=== PATIENT | female | born 1985 | race Caucasian/White ===

== ENCOUNTER 2019-12-24 01:06 | Day surgery (SDC) | payer BC, SELFPAY ==
[2019-12-23 09:54] VITALS: BMI 29.3
--- NOTE | 2019-12-23 10:55 | PM.IMHP ---
H&P: HPI History of Present Illness Chief complaint: Irregular Bleeding Narrative: Guilherme Cedillo is a 34 year old female who is admitted for hysteroscopy dilatation curettage secondary to continued excessive heavy bleeding. She was seen a week ago after bleeding for approximately a week and half had been on a continuous take pill she has gone through temp entered tampon every 2 hours she continued to have clotting despite being treated with not transmit gas in and of these clots been anywhere from a golf ball to a smaller size. She continues to bleed she is admitted for hysteroscopy dilatation and curettage. Risks and benefits reviewed Review of Systems Review of Systems: All systems reviewed & are unremarkable except as noted in HPI and below PMFSH Family History Family History Sibling Family history of diabetes mellitus in first degree relative Other Family history of cardiovascular disease Hypertension Social History Social History Smoking status: Never smoker Alcohol intake: current Meds Home Medications and Allergies Home Medications Medication Instructions Recorded Confirmed Type albuterol sulfate 2 puff INHALATION Q6H PRN 12/23/19 12/23/19 History beclomethasone dipropionate [Qvar 2 inh INHALATION DAILY 12/23/19 12/23/19 History RediHaler] bupropion HCl 300 mg PO DAILY 12/23/19 12/23/19 History Allergies Allergy/AdvReac Type Severity Reaction Status Date / Time No Known Allergies Allergy Unverified 12/23/19 09:57 Exam Const: General: no acute distress Eyes: General: appearance normal, both eyes and all related structures Neck: Neck: supple and no JVD Thyroid: thyroid normal Resp: Effort & Inspection: normal respiratory effort Auscultation: clear to auscultation bilaterally Cardio: Rate: regular rate Rhythm: regular rhythm GI: Inspection: non-distended GI Palp: Yes Soft to palpation, No Tenderness to palpation present (GI) and No Guarding due to palpation present (GI) Auscultation: normal bowel sounds : General: Yes bladder normal to palpation External Female Exam: normal external appearance Speculum Exam - Vagina: normal vaginal discharge and No vaginal bleeding Speculum Exam - Cervix: nontender Bimanual exam- vagina & uterus: bladder normal to palpation and No Cervical tenderness present OB/external & speculum: No vaginal bleeding Skin: General skin exam: no rashes or lesions noted Extrem: General: normal to inspection and no edema Psych: Mental Status: mental status grossly normal Affect: normal affect Assessment and Plan Additional Plan a in impression: Excessive heavy bleeding refractory medical therapy Plan: Hysteroscopy, dilatation and curettage
--- NOTE | 2019-12-24 06:43 | WPDHPUPDATE1 ---
History and Physical Update Update Date/Time: 12/24/19 06:43 History and Physical has been reviewed, including an updated exam of the patient. There are NO changes in the patient's condition. Risks, benefits, and alternatives have been discussed and questions answered. Patient agrees to proceed with procedure.
--- NOTE | 2019-12-24 09:31 | WPDANESEPPF ---
Anes - Initial Pre Proc Eval Procedure: Operation Date: 12/24/19 11:30 Proposed Procedures p Hysteroscopy, Dilation and Curettage - Favio Zaidi MD Date/Time: 12/24/19 09:31 Surgeon: Favio Zaidi MD Pre Op Diagnosis: Irregular Bleeding Patient Data Age: 34 Gender: F Height: 5 ft 6 in Weight: 83.5 kg Allergies Allergy/AdvReac Type Severity Reaction Status Date / Time No Known Allergies Allergy Unverified 12/24/19 09:27 Home Medications Medication Instructions Recorded Confirmed Type albuterol sulfate 2 puff INHALATION Q6H PRN 12/23/19 12/24/19 History beclomethasone dipropionate [Qvar 2 inh INHALATION DAILY 12/23/19 12/24/19 History RediHaler] bupropion HCl 300 mg PO DAILY 12/23/19 12/24/19 History hydrocodone-acetaminophen [[place]] 1 tablet PO Q4H PRN #20 tablet 12/24/19 Rx Patient hx anesthesia problems: none Family hx anesthesia problems: none PMFSH Past Medical History Medical History (Updated 12/24/19 @ 09:32 by Favio Edmonds MD) Anxiety Asthma Overweight Surgical History Surgical History (Updated 12/24/19 @ 09:32 by Favio Edmonds MD) H/O lithotripsy History of thoracic spinal fusion Family History Family History Sibling Family history of diabetes mellitus in first degree relative Other Family history of cardiovascular disease Hypertension Social History Social History Smoking status: Never smoker Alcohol intake: current Anes - Eval Final PreProcedure Day of Procedure 12/24/19 09:31 Patient weight: overweight Heart: regular rate and rhythm Lungs: clear to auscultation Airway: Mallampati scale class II Neurological: alert and oriented Last oral intake: >/= 8 hours ASA classification: II Anesthetic plan: proceed Anesthesia type and monitoring: general GIVS and standard monitoring Informed Consent: The patient's anesthetic plan and its attendant risks and benefits were discussed with the patient/family/POA. Questions were solicited and answers provided to the satisfaction of the patient/family/POA.
[2019-12-24 09:32] VITALS: BP 126/76; PULSE 79; RESP 18; TEMP 36.6; O2SAT 100
[2019-12-24] MEDS: LACTATED RINGERS 1,000 ML 30 ML IV CONT (09:36)
[2019-12-24] MEDS: KETOROLAC 30 MG/ML VIAL (*BKC) IV PUSH (11:13)
--- NOTE | 2019-12-24 11:18 | PM.PROC ---
Procedure Note - Detailed Date of procedure: 12/24/19 Pre-op diagnosis: Irregular Bleeding Surgeon: Favio Zaidi MD Postop diagnosis: Irregular bleeding Procedure: Hysteroscopy , dilatation curettage Anesthesia: G IV S, local Complications: None Findings: Thick irregular endometrial tissue Description procedure patient was prepped and draped in the normal sterile fashion placed in dorsal lithotomy position. Under excellent IV sedation a weighted speculum was placed in the posterior fornix of vagina. The anterior lip of the cervix grasped with single-tooth tenaculum. 2.5cc of 1% xylocaine anesthesia placed at 2 for 8 and 10:00 a.m. respectively of the cervix. Uterus sounded 8cm. Serial dilatation with fragmented out performed followed by passage of the 5mm visualizing hysteroscope using normal saline as visualizing medium. Thick irregular endometrial tissue was seen. Each fallopian tube os could be seen. The uterus was then scraped over the entire 360?. A good grating sound was heard in the procedure was finished. All sponge, needle, instrument counts were correct. There were no immediate complications
[2019-12-24 11:25] VITALS: BP 131/72; PULSE 70; RESP 16
[2019-12-24 12:06] VITALS: BP 132/68; PULSE 68
--- NOTE | 2019-12-24 12:21 | SUR.PHASEII ---
[address] rainey about pain script, he says he printed one will check pre-op.
--- NOTE | 2019-12-24 12:23 | SUR.PHASEII ---
1223 pain script found in pre-op
== END 2019-12-24 12:38 | disposition home or self-care (01) ==
PROVIDERS: PCP Physician Assistant; Visit Provider Obstetrics & Gynecology
PROC: 0U5B8ZZ Destruction of Endometrium, Via Natural or Artificial Opening Endoscopic (ICD-10-PCS; CPT 58563; principal; 2019-12-24 11:30)
DX: N93.9 Abnormal uterine and vaginal bleeding, unspecified (principal); N85.8 Other specified noninflammatory disorders of uterus; J45.909 Unspecified asthma, uncomplicated; F41.9 Anxiety disorder, unspecified; Z98.1 Arthrodesis status
CPT/HCPCS: 58558; 88305; A9270; J0131; J1885; J2250; J2405; J2704; J3010; J7030; J7120

== ENCOUNTER 2020-07-21 19:58 | Emergency (ER) | payer BC, SELFPAY ==
[2020-07-21 20:01] VITALS: BP 157/101; PULSE 97; RESP 16; TEMP 36.4; O2SAT 100
[2020-07-21] MEDS: methylPREDNISolone SOD SUCC 125 MG VIAL IV PUSH (20:17)
[2020-07-21] MEDS: FAMOTIDINE 20 MG/2 ML VIAL IV PUSH (20:17)
[2020-07-21] MEDS: EPINEPHrine HCL INJ 1 MG/ML AMPUL 0.3 MG IM (20:19)
--- NOTE | 2020-07-21 20:21 | ED.ALLEREA ---
HPI - Allergic Reaction General Chief complaint: Allergic Reaction Stated complaint: allergic reaction, lip swelling, SOB Time Seen by Provider: 07/21/20 20:09 Source: patient Mode of arrival: ambulatory Limitations: no limitations History of Present Illness HPI narrative: This patient is a 35 year old female who presents for evaluation of an allergic reaction. Patient reports she was eating dinner around 1800 today. She was eating cod, macarroni and coleslaw. Shortly after eating she developed tingling to his lips . She went home to take benadryl 50 mg. Her lip tingling improved but she continues to have itching throat, cough and feeling that tongue is swollen. She denies any allergies . She reports having hives before but she never knee the cause. Related Data Home Medications Medication Instructions Recorded Confirmed bupropion HCl mg PO 07/21/20 drospirenone-ethinyl estradiol tablet 07/21/20 Allergies Allergy/AdvReac Type Severity Reaction Status Date / Time No Known Allergies Allergy Unverified 12/24/19 09:27 Review of Systems Review of Systems: All systems reviewed & are unremarkable except as noted in HPI and below Constitutional: Constitutional: Denies chills and Denies fever(s) Cardiovascular: Cardiovascular: Denies chest pain Respiratory: Respiratory: Reports cough and Reports dyspnea Integumentary/Breasts: Skin/Breast: Reports pruritus PMFSH Past Medical History Medical History (Updated 07/22/20 @ 00:00 by Kendra Rincon) Anxiety Asthma Overweight Surgical History Surgical History (Updated 12/24/19 @ 09:32 by Favio Edmonds MD) H/O lithotripsy History of thoracic spinal fusion Social History Social History Smoking status: Never smoker Alcohol intake: current Exam Narrative: Exam Narrative: GENERAL: Well-appearing, well-nourished, and in no acute distress. HEAD: Normocephalic, atraumatic EYES: PERRLA and EOMI, conjunctiva clear without discharge THROAT:Mucous membranes moist, Oropharynx normal without erythema, exudate, peritonsillar swelling or fluctuance NECK: Supple, without lymphadenopathy or mass RESPIRATORY: No respiratory distress, Airway patent, Respirations non-labored, Clear to auscultation without rales, rhonchi or wheeze HEART: Regular rate and rhythm. No murmur heard. Normal peripheral pulses. ABDOMEN: Soft, nontender, nondistended, normal active bowel sounds. No masses. No rebound or guarding, No organomegaly. EXTREMITIES: No edema, normal strength with full range of motion. SKIN: Warm, dry, normal color without rash NEURO: Alert and oriented x3. CN 2-12 grossly intact. No focal deficits. PSYCH: Normal mood and affect. Course Reevaluation(s) Reevaluation #1: PAtient only has mild headache now. She reports she feels better. She is able to eat and drink without difficulty now. She is no longer coughing. Date: 07/21/20 Time: 22:03 Vital Signs Vital signs: Vital Signs Temperature 97.6 F 07/21/20 20:01 Pulse Rate 97 07/21/20 20:01 Respiratory Rate 16 07/21/20 20:01 Blood Pressure 157/101 H 07/21/20 20:01 Pulse Oximetry 100 07/21/20 20:01 Temperature 97.6 F 07/21/20 20:01 Pulse Rate 83 07/21/20 22:22 Respiratory Rate 16 07/21/20 22:22 Blood Pressure 125/87 07/21/20 22:22 Pulse Oximetry 100 07/21/20 22:22 Discharge Plan Discharge Clinical Impression: Allergic reaction Patient Disposition: Home, Self-Care Condition: Stable Instructions: Antibiotic Form, Anaphylaxis (ED), Allergies (ED) Additional Instructions: Today you were evaluated for an allergic reaction of an unknown cause . Keep a diary of your eating and exposures. IF your shortness of breath, tongue swelling or symptoms worsen return to ER. Follow up with your primary care physician. Prescriptions: New epinephrine [EpiPen] 0.3 mg/0.3 mL auto-injector 0.3 m
[2020-07-21 20:36] VITALS: BP 131/90; PULSE 90; RESP 16; O2SAT 100
[2020-07-21 22:22] VITALS: BP 125/87; PULSE 83; RESP 16; O2SAT 100
== END 2020-07-21 22:23 | disposition home or self-care (01) ==
PROVIDERS: Emergency Provider General Practice; PCP Physician Assistant
DX: T78.40XA Allergy, unspecified, initial encounter (principal); F41.9 Anxiety disorder, unspecified; J45.909 Unspecified asthma, uncomplicated; E66.3 Overweight; Z68.32 Body mass index [BMI] 32.0-32.9, adult
CPT/HCPCS: 96372; 96374; 96375; 99284; J0171; J2930

== ENCOUNTER 2022-01-08 20:15 | Emergency (ER) | payer BC, SELFPAY ==
--- NOTE | ~2022-01-08 | CT_ITS ---
EXAMINATION: CT abdomen pelvis w con INDICATION: Epigastric abdominal pain TECHNIQUE: Computed tomographic images of the abdomen and pelvis were obtained after the administrati on of 100 cc of Omnipaque 350 intravenous contrast. The dose-length product (DLP) was 640.36 mGy-cm. Automated exposure control and iterative reconstruction technique were employed. COMPARISON: 08/08/2018 FINDINGS: A stable 3 mm subpleural nodule of the left lower lobe is consistent with old granulomatous disease. There is mild enlargement of the common bile duct which measures up to 7 mm. There is mild intrahepatic biliary dilatation. The spleen, pancreas, gallbladder, and adrenal glands are normal. No nobstructing stones of the right kidney measure up to 9 mm. There are punctate nonobstructing stones of the left kidney. No pathologically enlarged abdominal or pelvic lymph nodes are identified. There is no free intraperitoneal gas or evidence of bowel obstruction. There is a greater than normal numbe r of fluid-filled, nondistended small bowel loops. The appendix is normal. IMPRESSION: 1. Mild intrahepatic and extrahepatic biliary dilatation of unclear significance. Consider right uppe r quadrant ultrasound. 2. Greater than normal number of fluid-filled, nondistended small bowel loops which could reflect ent eritis. Reviewed, dictated and finalized at location F. RNAL AUDIT DIRECTOR IMPRESSION: 1. Mild intrahepatic and extrahepatic biliary dilatation of unclear significanc e. Consider right upper quadrant ultrasound. 2. Greater than normal number of fluid-filled, nondistended small bowel loops w hich could reflect enteritis.
[2022-01-08 20:15] VITALS: BP 131/78; PULSE 84; RESP 15; TEMP 36.1; O2SAT 100
[2022-01-08 20:20] VITALS: BP 131/78; PULSE 85; RESP 24; O2SAT 100
--- NOTE | 2022-01-08 20:30 | ECG_ITS ---
Measurements Intervals [place] Rate: 77 P: 51 [place]: 155 QRS: 81 QRSD: 91 T: 77 QT: 425 QTc: 482 Interpretive Statements SINUS RHYTHM MINIMAL Q WAVES- INFERIOR LEADS BORDERLINE ST ABNORMALITY- ANTEROLAT/INF LEADS BORDERLINE ECG Electronically Signed On 01-09-2022 6:24:31 [employer] by Arash Foley D.O.
--- NOTE | 2022-01-08 20:31 | ED.ABDPAIN ---
HPI - Abdominal Pain General Chief Complaint: Abdominal Pain <Zita Dubon MD - Last Filed: 01/08/22 20:42> Stated Complaint: abd pain <Zita Dubon MD - Last Filed: 01/08/22 20:42> Time Seen by Provider: 01/08/22 20:19 <Zita Dubon MD - Last Filed: 01/08/22 20:42> Source: patient <Zita Dubon MD - Last Filed: 01/08/22 20:42> Mode of arrival: EMS <Zita Dubon MD - Last Filed: 01/08/22 20:42> Limitations: no limitations <Zita Dubon MD - Last Filed: 01/08/22 20:42> History of Present Illness HPI narrative: This is a 36 year old female who presents for evaluation of sudden onset epigastric abdominal pain. She states 1 hour ago she was driving and she developed sudden onset epigastric pain. She describes this pain has squeezing. She reports her pain has been so severe she is nauseaous and felt like she was going to pass out. She pulled over to side of road and called and EMS. She reports having GI bug this past weekend with vomiting and diarrhea but it had resolved. She ate Tajik food 1 hour prior to her pain but she states this is nothing out of the ordinary. She denies any similar pain in the past. She denies melena or diarrhea today. Shed denies fever or chills. <Zita Dubon MD - Last Filed: 01/08/22 20:42> Related Data Home Medications: Home Medications Medication Instructions Recorded Confirmed bupropion HCl mg PO 07/21/20 drospirenone-ethinyl estradiol tablet 07/21/20 <Zita Dubon MD - Last Filed: 01/08/22 20:42> Allergies/Adverse Reactions: Allergies Allergy/AdvReac Type Severity Reaction Status Date / Time No Known Allergies Allergy Verified 01/08/22 20:21 <Zita Dubon MD - Last Filed: 01/08/22 20:42> Review of Systems Review of Systems: All systems reviewed & are unremarkable except as noted in HPI and below <Zita Dubon MD - Last Filed: 01/08/22 20:42> [facility] Past Medical History Medical History: Medical History Anxiety Asthma Kidney stone Overweight <Zita Dubon MD - Last Filed: 01/08/22 20:42> Surgical History Surgical History: Surgical History (Updated 01/08/22 @ 20:32 by Zita Dubon MD) H/O lithotripsy History of cholecystectomy History of thoracic spinal fusion <Zita Dubon MD - Last Filed: 01/08/22 20:42> Family History Family History: Family History Sibling Family history of diabetes mellitus in first degree relative Other Family history of cardiovascular disease Hypertension <Zita Dubon MD - Last Filed: 01/08/22 20:42> Social History Social History: Social History Smoking status: Never smoker Alcohol intake: current <Zita Dubon MD - Last Filed: 01/08/22 20:42> Exam Const: General: alert <Zita Dubon MD - Last Filed: 01/08/22 20:42> Orientation/consciousness: patient oriented x3 <Zita Dubon MD - Last Filed: 01/08/22 20:42> Other: mild distress due to pain <Zita Dubon MD - Last Filed: 01/08/22 20:42> Eyes: EOM: EOMs intact bilaterally <Zita Dubon MD - Last Filed: 01/08/22 20:42> Chest: Chest palpation & inspection: normal inspection of the chest <Zita Dubon MD - Last Filed: 01/08/22 20:42> Resp: Effort & Inspection: normal respiratory effort and no retractions <Zita Dubon MD - Last Filed: 01/08/22 20:42> Auscultation: clear to auscultation bilaterally <Zita Dubon MD - Last Filed: 01/08/22 20:42> Cardio: Rate: regular rate <Zita Dubon MD - Last Filed: 01/08/22 20:42> Rhythm: regular rhythm <Zita Dubon MD - Last Filed: 01/08/22 20:42> Heart sounds: no murmurs <Zita Dubon MD - Last Filed: 01/08/22 20:42> GI: GI Palp: Yes Sof
[2022-01-08] MEDS: SODIUM CHLORIDE 0.9% IV 1,000 ML 999 ML IV CONT (20:43)
[2022-01-08] MEDS: PANTOPRAZOLE SODIUM IV 40 MG VIAL IV PUSH (20:43)
[2022-01-08] MEDS: DICYCLOMINE HCL INJ 20 MG/2 ML VIAL IM (20:43)
[2022-01-08] MEDS: ONDANSETRON INJ 4 MG/2 ML VIAL IV PUSH (20:43)
[2022-01-08 21:00] LABS: Basophils Percent Auto 0.4 % (0.2-1.2); Eosinophils Absolute Auto 0.1 K/mm3 (0-0.3); Eosinophils Percent Auto 0.6 % (0-4.4); Hematocrit 38.4 % (37.0-47.0); Immature Granulocyte Absolute 0.03 K/mm3 (0.00-0.031); Immature Granulocyte Percent A 0.3 % (0-0.5); Lymphocytes Absolute Auto 3.96 K/mm3 (0.9-3.2); Lymphocytes Percent Auto 40.1 % (18.3-44.2); Mean Corpuscular HGB Conc 33.9 g/dl (32-36); Mean Corpuscular Hemoglobin 29.2 pg (26-34); Mean Corpuscular Volume 86.3 fl (80-100); Mean Platelet Volume 9.7 fl (7.4-10.4); Monocytes Absolute Auto 0.6 K/mm3 (0.1-0.6); Monocytes Percent Auto 6.3 % (2.6-8.5); Neutrophils Absolute Auto 5.2 K/mm3 (1.3-6.7); Neutrophils Percent Auto 52.3 % (45.5-73.1); Platelet Count Result 245 k/mm3 (150-375); Red Blood Count 4.45 M/mm3 (4.2-5.4); Red Cell Distribution Width 12.2 % (11.5-14.5); White Blood Count 9.9 K/mm3 (4.5-10.0)
[2022-01-08 21:08] LABS: Alanine Aminotransferase 19 U/L (4-35); Albumin Level 4.3 g/dL (3.5-5.1); Alkaline Phosphatase 97 U/L (38-126); Anion Gap 6 mmol/L (8-16); Aspartate Amino Transferase 31 U/L (14-36); Bilirubin,Total 0.5 mg/dL (0.2-1.3); Blood Urea Nitrogen 11 mg/dL (7-17); Carbon Dioxide 29 mmol/L (22-30); Chloride 102 mmol/L (98-107); Estimated CRCL calculation 86 ml/min; Estimated Glomerular Filt Rate > 60; Glucose 99 mg/dL (65-110); Lipase 150 U/L (23-300); Potassium 3.4 mmol/L (3.4-5.0); Sodium 137 mmol/L (137-145)
[2022-01-08 21:08] LABS: Add Urine Microscopic? YES; Appearance Urine Clear (Clear); Bacteria Urine Trace /hpf; Bilirubin Urine Negative (Negative); Blood Urine 1+ (Negative); Calcium Oxalate Crystals Urine Present /hpf; Color Urine Yellow (Yellow); Glucose Urine UA Negative (Negative); Ketones Urine Negative (Negative); Leukocyte Esterase Ur Negative LEU/UL (Negative); Nitrate Urine Negative (Negative); Protein Urine Negative (Negative); Specific Grav Ur 1.016 (1.001-1.035); Squamous Epithelial Cell Urine Rare /hpf (Few); Urobilinogen Urine Negative mg/dL (<2.0)
[2022-01-08] MEDS: HYDROmorphone HCL INJ (*CRX) 1 MG/ML SYR 0.5 MG IV PUSH (21:36)
[2022-01-08] MEDS: BELLADONNA ALK/PHENOB ELIX 10 ML, MAG HYDROX/ALUMINUM HYD/SIMETH 30 ML, LIDOCAINE HCL 2... PO (22:32)
[2022-01-08 22:35] VITALS: BP 129/79; PULSE 87; RESP 20; O2SAT 100
[2022-01-08] MEDS: FAMOTIDINE 20 MG TABLET 40 MG PO (23:24)
[2022-01-08 23:38] VITALS: BP 134/87; PULSE 81; RESP 16; O2SAT 97
== END 2022-01-08 23:39 | disposition home or self-care (01) ==
PROVIDERS: General Practice; Emergency Provider Emergency Medicine; PCP Physician Assistant
DX: K29.00 Acute gastritis without bleeding (principal); J45.909 Unspecified asthma, uncomplicated; F41.9 Anxiety disorder, unspecified; Z87.442 Personal history of urinary calculi; E66.3 Overweight; Z68.25 Body mass index [BMI] 25.0-25.9, adult; Z98.1 Arthrodesis status; R94.31 Abnormal electrocardiogram [ECG] [EKG]; R93.2 Abnormal findings on diagnostic imaging of liver and biliary tract
CPT/HCPCS: 36415; 74177; 80053; 81001; 81025; 83690; 85025; 93005; 96361; 96372; 96374; 96375; 99284; A9270; C9113; J0500; J1170; J2405; J7030; Q9967

== ENCOUNTER 2022-01-10 09:00 | Outpatient (CLI) | payer BC, SELFPAY ==
--- NOTE | ~2022-01-10 | US_ITS ---
EXAMINATION: US right upper quadrant DATE: 01/10/2022 09:30 INDICATION: Disorder of bile duct. Right upper quadrant abdominal pain. TECHNIQUE: Multiple grayscale and Doppler ultrasound images of the abdomen were obtained. COMPARISON: CT abdomen and pelvis 01/08/2022 FINDINGS: The visualized portions of the head, body, and tail of the pancreas are normal. The liver i s normal without focal lesion. No liver surface nodularity. The gallbladder is absent. There is scotty l flow in the main portal vein. The common duct is normal and measures 4 mm. Abdominal aorta is scotty l in caliber. Inferior vena cava is normal. IMPRESSION: 1. Normal right upper quadrant ultrasound status post cholecystectomy. Reviewed, dictated and finalized at location A. ANALYST REPORT WRITER
== END 2022-01-10 09:01 ==
LOC: MICIMG 09:01
PROVIDERS: PCP Physician Assistant; Visit Provider Physician Assistant
DX: K83.9 Disease of biliary tract, unspecified (principal)
CPT/HCPCS: 76705

== ENCOUNTER 2022-03-18 12:09 | Outpatient (CLI) | payer BC, SELFPAY ==
--- NOTE | ~2022-03-18 | MMUS_ITS ---
EXAMINATION: MM diagnostic connie BI w stan, US breast BI complete HISTORY: Right lateral breast pain, swelling, rash. Diminished redness with steroid cream. TECHNIQUE: ML, MLO and CC 3-D tomosynthesis images of both breasts were performed and synthetic 2-D i mages were generated. CAD analysis was submitted and interpreted. High resolution bilateral complete breast ultrasound including all 4 quadrants and subareolar areas was performed. COMPARISON: None BREAST PARENCHYMAL COMPOSITION: The breasts are extremely dense, which lowers the sensitivity of mamm ography. FINDINGS: MAMMOGRAPHIC FINDINGS: No suspicious mass or architectural distortion, malignant calcification, skin thickening or retractio n is detected. ULTRASOUND: No suspicious mass or shadowing of either breast is detected. No cysts or other significant sonograph ic finding. IMPRESSION: 1. No mammographic evidence of malignancy 2. Routine mammographic screening beginning at age 40 is recommended; negative mammogram and ultrasou nd examinations do not preclude further evaluation of any clinically suspicious abnormality. BI-RADS Category 1: Negative Reviewed, dictated and finalized at location A. IMPRESSION: 1. No mammographic evidence of malignancy 2. Routine mammographic screening beginning at age 40 is recommended; negative mammogram and ultrasound examinations do not preclude further evaluation of any clinically suspicious abnormality. BI-RADS Category 1: Negative
== END 2022-03-18 12:10 | disposition home or self-care (01) ==
LOC: ANHIMG 12:11
PROVIDERS: PCP Physician Assistant; Visit Provider Obstetrics & Gynecology
DX: N64.4 Mastodynia (principal)
CPT/HCPCS: 76641; 77062; 77066; G0279

== ENCOUNTER 2022-08-16 10:34 | Day surgery (SDC) | payer BC, SELFPAY ==
[2022-08-16] VITALS (11 sets, daily range): BP systolic 119–141; BP diastolic 75–86; PULSE 54–80; RESP 12–20; TEMP 36.3–37.2; O2SAT 97–100
--- NOTE | 2022-08-16 10:37 | PC.NURSE ---
Report to the Outpatient Waiting Room, entrance under the green pavilion located off [facility], at time 1300 on date 08/16/22. OR Time: 1530. Time changes happen often and if your time is changed the preop area will call you the afternoon before. - You and your visitor will be asked to self-screen and do not enter if you have any COVID symptoms. - Only one visitor and NO children visitors are allowed at this time. - The patient visitor is requested to leave or wait in car when not with patient due to restrictions. - A mask is required within the hospital. Patients may have clear liquids (water, carbonated beverages, clear teas, apple juice) until 3 hours prior to surgery with a maximum of 20 ounces. - No food from midnight until time of surgery Take the following medications with a SIP of water the morning of surgery: N/A (TOOK AM MEDS) Medications to discontinue per physician: N/A Date to take last dose: N/A Please no make-up, nail burundian, hairspray, perfume, deodorant, or body powder the day of surgery. No jewelry (including any body piercings) or valuables the day of surgery, leave them at home. Please take a shower or bath the night before, or the morning of, surgery with an antibacterial soap. Wear comfortable, loose fitting clothing. - Jewelry must be removed prior to entering the operating room. Rings and piercings that are not removed may be cut off. - The hospital will not accept responsibility for valuables. - Please leave all valuables, including medications, at home the day of surgery. If you are going home after surgery, a licensed route sales delivery driver must drive you home. - NO public transportation without another adult. - We recommend that an adult stay with you for 24 hours following discharge. - We also recommend that you do not drive, make important decision, drink alcoholic beverages, or take any drugs that were not prescribed by your health care provider for at least 24 hours after your discharge time. Follow any additional instructions given to you from your surgeon. If you or anyone in your household have experienced Covid symptoms in the past week, please notify your surgeon or the nurse liaison at the phone number below for possible testing. Telephone instructions given to PT - BELEN LEIJA and asked if any additional questions and then verbalized understanding. Patient advised to call surgeon office or pre surgery nurse liaison [phone] if any additional questions.
--- NOTE | 2022-08-16 12:08 | PM.IMHP ---
H&P: HPI History of Present Illness Date/Time: 08/16/22 12:08 Chief Complaint: Bleeding/desires permanent sterilization Narrative: This is a 37-year-old multiparous female with heavy bleeding. She had been on the pill which did not stop her bleeding and then she went to oral TXA. She continues to bleed heavily. She desires permanent sterilization. Fortunately Dr. Lowe had discussed with her a tubal ligation and ablation before in the past and she is agreeable to that risks and benefits reviewed in full [facility] Past Medical History Medical History Anxiety Asthma Kidney stone Overweight Surgical History Surgical History H/O lithotripsy History of cholecystectomy History of thoracic spinal fusion Family History Family History Sibling Family history of diabetes mellitus in first degree relative Other Family history of cardiovascular disease Hypertension Social History Social History Smoking status: Never smoker Alcohol intake: current Drinks per week: 2 Substance use: never Substance use type: does not use Living arrangements: with family Spiritual care concerns: No Meds Home Medications and Allergies Home Medications Medication Instructions Recorded Confirmed Type bupropion HCl 300 mg 24 hr tablet, 300 mg PO DAILY 07/21/20 08/16/22 History extended release drospirenone 3 mg-ethinyl 1 tablet PO DAILY 07/21/20 08/16/22 History estradiol 0.03 mg tablet epinephrine 0.3 mg/0.3 mL 0.3 mg (0.3 mL) IM ONCE #1 ea 07/21/20 08/16/22 Rx injection, auto-injector (EpiPen) beclomethasone dipropionate 40 2 inh inhalation DAILY 08/16/22 08/16/22 History mcg/actuation HFA breath activated aerosol (Qvar RediHaler) cetirizine 10 mg tablet (Zyrtec) 10 mg PO DAILY 08/16/22 08/16/22 History tranexamic acid 650 mg tablet 1,300 mg PO TID 08/16/22 08/16/22 History Allergies Allergy/AdvReac Type Severity Reaction Status Date / Time No Known Allergies Allergy Verified 08/16/22 10:25 Exam Const: General: cooperative, healthy appearing and comfortable Nutritional Appearance: average body habitus Orientation/consciousness: oriented to person, oriented to place and oriented to time HENMT: Head: normal to inspection Neck: Neck: normal visual inspection Chest: Chest palpation & inspection: normal inspection of the chest Resp: Effort & Inspection: normal respiratory effort Cardio: Rate: regular rate Rhythm: regular rhythm Heart sounds: S1 normal heart sound present and S2 normal heart sound present GI: Inspection: normal to inspection : External Female Exam: normal external appearance Speculum Exam - Vagina: normal appearance of the vagina and vaginal bleeding Speculum Exam - Cervix: Cervical os open Bimanual exam- vagina & uterus: enlarged Bimanual Exam- Adnexa, other: normal adnexae Assessment and Plan Assessment and plan (1) Vaginal bleeding: Code(s): N93.9 - Abnormal uterine and vaginal bleeding, unspecified Status: Acute (2) Sterilization: Code(s): Z30.2 - Encounter for sterilization Status: Acute Plan Laparoscopic tubal ligation/hysteroscopy/dilatation curettage/endometrial ablation
--- NOTE | 2022-08-16 12:11 | WPDHPUPDATE1 ---
History and Physical Update Update Date/Time: 08/16/22 12:11 History and Physical has been reviewed, including an updated exam of the patient. There are NO changes in the patient's condition. Risks, benefits, and alternatives have been discussed and questions answered. Patient agrees to proceed with procedure.
[2022-08-16] MEDS: LACTATED RINGERS 1,000 ML 30 ML IV CONT ×2 (14:35→15:40)
[2022-08-16] MEDS: KETOROLAC 15 MG/ML VIAL (*BKC) IV PUSH (14:35)
[2022-08-16] MEDS: ACETAMINOPHEN 500 MG TABLET 1000 MG PO (14:35)
--- NOTE | 2022-08-16 14:40 | WPDANESEPPF ---
Anes - Initial Pre Proc Eval Procedure: Operation Date: 08/16/22 15:30 Proposed Procedures p Laparoscopic Bilateral Tubal Sterilization with Fallopian Rings - Favio Marquez MD s Hysteroscopy, Dilation and Curettage with Kendra Endometrial Ablation - Favio Marquez MD Date/Time: 08/16/22 14:40 Surgeon: Favio Marquez MD Pre Op Diagnosis: excessive bleeding, sterilization Patient Data Age: 37 Gender: F Height: 1.68 m Weight: 83.7 kg Last Vital Signs Temp 36.3 C L 08/16/22 14:10 Pulse 80 08/16/22 14:10 Resp 16 08/16/22 14:10 BP 141/76 H 08/16/22 14:10 Pulse Ox 100 08/16/22 14:10 O2 Del Method Room Air 08/16/22 14:10 Allergies Allergy/AdvReac Type Severity Reaction Status Date / Time No Known Allergies Allergy Verified 08/16/22 14:41 Home Medications Medication Instructions Recorded Confirmed Type bupropion HCl 300 mg 24 hr tablet, 300 mg PO DAILY 07/21/20 08/16/22 History extended release drospirenone 3 mg-ethinyl 1 tablet PO DAILY 07/21/20 08/16/22 History estradiol 0.03 mg tablet epinephrine 0.3 mg/0.3 mL 0.3 mg (0.3 mL) IM ONCE #1 ea 07/21/20 08/16/22 Rx injection, auto-injector (EpiPen) beclomethasone dipropionate 40 2 inh inhalation DAILY 08/16/22 08/16/22 History mcg/actuation HFA breath activated aerosol (Qvar RediHaler) cetirizine 10 mg tablet (Zyrtec) 10 mg PO DAILY 08/16/22 08/16/22 History hydrocodone 5 mg-acetaminophen 325 1 tablet PO Q4H PRN pain #30 tabs 08/16/22 Rx mg tablet tranexamic acid 650 mg tablet 1,300 mg PO TID 08/16/22 08/16/22 History Laboratory Tests 08/16/22 14:27 Hgb Pending Hct Pending Patient hx anesthesia problems: none Family hx anesthesia problems: none Results Review: All pre-operative results and documents have been reviewed as part of the pre-operative evaluation. PMFSH Past Medical History Medical History Anxiety Asthma Kidney stone Overweight Surgical History Surgical History H/O lithotripsy History of cholecystectomy History of thoracic spinal fusion Family History Family History Sibling Family history of diabetes mellitus in first degree relative Other Family history of cardiovascular disease Hypertension Social History Social History Smoking status: Never smoker Alcohol intake: current Drinks per week: 2 Substance use: never Substance use type: does not use Living arrangements: with family Spiritual care concerns: No Anes - Eval Final PreProcedure Day of Procedure 08/16/22 14:40 Patient weight: obese Heart: regular rate and rhythm Lungs: clear to auscultation Airway: Mallampati scale class II Neurological: alert and oriented Last oral intake: >/= 8 hours ASA classification: III Anesthetic plan: proceed Anesthesia type and monitoring: general ETT and standard monitoring Results Review: All pre-operative results and documents have been reviewed as part of the pre-operative evaluation. Informed Consent: The patient's anesthetic plan and its attendant risks and benefits were discussed with the patient/family/POA. Questions were solicited and answers provided to the satisfaction of the patient/family/POA.
[2022-08-16 14:41] LABS: Hematocrit 40.4 % (37.0-47.0)
--- NOTE | 2022-08-16 16:29 | P.OP_ITS ---
Procedure Note - Detailed Date of Procedure 08/16/22 Pre-op Diagnosis excessive bleeding, sterilization Post-op Diagnosis Same Procedure Performed Laparoscopic bilateral tubal ligation with rings/hysteroscopy / dilatation and curettage/Kendra ablation Surgeon Favio Marquez MD Anesthesia General Indications this is a 37-year-old female for D and C and ablation she also desired a tubal. She was unsuccessful with stopping her bleeding with pills and TXA. She decided she wanted permanent sterilization and we reviewed risks of that before and Findings normal-appearing uterus ovaries and tubes. On hysteroscopy thick endometrial tissue was seen in the uterus sounded to8.5cm. Description of Procedure Patient was prepped draped in the normal sterile fashion placed in the dorsal lithotomy position. Under excellent general trach anesthesia weighted speculum placed in posterior fornix vagina. Anterior lip of the cervix grasped with single-tooth tenaculum and the Singh's cannula inserted the cervix. These were used later for uterine manipulation. Bladder emptied of about 150cc of clear urine. The weighted speculum was removed and the gloves were changed. An infraumbilical incision made the Veress needle passed in the abdomen. Abdomen filled with CO2 gas [id number]. The 5mm trocar advanced under direct visualization with the Optiview and no injury seen. Gas reattached patient placed in Trendelenburg and a suprapubic incision made. The 5mm trocar was advanced under direct visualization assuring no injury. Uterus ovaries and tubes were seen there was a small amount of blood was seen coming from the tubes bilaterally this was irrigated and normal-appearing anatomy was noted. The left fallopian tube was grasped with a ring forcep applicator and a good knuckle of tube was seen with excellent Bascom. This was repeated on the right side with aid good knuckle of tube in the midportion and excellent blanching as well. No other abnormalities were seen the gas was removed. The trocars removed and the incisions closed with 4 Monocryl and glue. Attention was then turned to the hysteroscopic portion. The uterus sounded to8.5cm. Serial dilatation with fragmented dilators performed followed by passage of the 5mm visualizing hysteroscope. Normal saline was used as visualizing medium. Thick irregular endometrial tissue with clots were noted in the uterus. These were washed out and the fallopian tube os were seen bilaterally. The uterus then scraped over the entire 360? removing a moderate amount of tissue debris. When no further tissue could be removed, the Kendra instrument was placed in the uterus and burned 120seconds at the appropriate settings. The instruments removed and hysteroscope reinserted and excellent burn noted and photo documentation underta efren the instruments removed from the vagina. The patient was awakened and went to recovery in satisfactory condition. All sponge, needle, instrument counts were correct. There were no immediate complications Estimated Blood Loss 5 Drains No Packing No Pathology Yes Complications No immediate complications Condition Stable Disposition PACU
[2022-08-16] MEDS: fentaNYL CITRATE INJ (*CRX) 100 MCG/2 ML VIAL 25 MCG IV PUSH ×8 (16:57→17:31)
[2022-08-16] MEDS: diphenhydrAMINE HCl INJ 50 MG/ML VIAL 12.5 MG IV PUSH (17:01)
[2022-08-16] MEDS: SCOPOLAMINE 1.5 MG PATCH TRANSDERM (17:01)
[2022-08-16] MEDS: oxyCODONE HCL (*CRX) 5 MG TAB IR PO (17:59)
== END 2022-08-16 19:20 | disposition home or self-care (01) ==
PROVIDERS: PCP Physician Assistant; Visit Provider Obstetrics & Gynecology
PROC: (CPT 58671; principal; 2022-08-16 15:30)
PROC: 0U5B8ZZ Destruction of Endometrium, Via Natural or Artificial Opening Endoscopic (ICD-10-PCS; CPT 58563; 2022-08-16 15:30)
DX: N93.9 Abnormal uterine and vaginal bleeding, unspecified (principal); Z30.2 Encounter for sterilization; F41.9 Anxiety disorder, unspecified
CPT/HCPCS: 58671; 58563; 36415; 85014; 85018; 88305; A4264; A9270; J0330; J1100; J1170; J1200; J1885; J2250; J2405; J2765; J3010; J7030; J7120

== ENCOUNTER 2023-02-07 08:24 | Emergency (ER) | payer BC, SELFPAY ==
[2023-02-07 08:39] VITALS: BP 118/82; PULSE 74; RESP 16; TEMP 36.3; O2SAT 99
--- NOTE | 2023-02-07 08:41 | ED.URI ---
HPI - URI/Sore Throat General Chief Complaint: Upper Respiratory Infection Stated Complaint: Sore Throat Time Seen by Provider: 02/07/23 08:41 Source: patient Mode of arrival: ambulatory Limitations: no limitations History of Present Illness HPI Narrative: patient is a 37-year-old female that presents with 1 day of sore throat, itchiness. states it is constant and nothing makes it better or worse. Denies any congestion, ear pain, fever, chills, cough. 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 Has not taken anything for symptoms. Related Data Home Medications Medication Instructions Recorded Confirmed bupropion HCl 300 mg 24 hr tablet, 300 mg PO DAILY 07/21/20 02/07/23 extended release beclomethasone dipropionate 40 2 inh inhalation DAILY 08/16/22 02/07/23 mcg/actuation HFA breath activated aerosol (Qvar RediHaler) cetirizine 10 mg tablet (Zyrtec) 10 mg PO DAILY 08/16/22 02/07/23 Allergies Allergy/AdvReac Type Severity Reaction Status Date / Time fish derived AdvReac Severe Anaphylaxis Verified 02/07/23 08:46 Review of Systems Review of Systems: All systems reviewed & are unremarkable except as noted in HPI and below Constitutional: Constitutional: Denies body ache(s), Denies fever(s), Denies headache(s), Denies malaise and Denies weakness Eyes: Eyes: Denies loss of vision ENT: Denies otalgia, Denies headache(s), Denies nasal congestion, Denies sinus pain and Reports sore throat Cardiovascular: Cardiovascular: Denies chest pain, Denies irregular heart rhythm and Denies dyspnea Respiratory: Respiratory: Denies cough and Denies dyspnea Gastrointestinal: Gastrointestinal: Denies abdominal pain, Denies melena, Denies hematochezia, Denies diarrhea, Denies nausea and Denies vomiting Musculoskeletal: Musculoskeletal: Denies back pain, Denies myalgias and Denies arthralgias Integumentary/Breasts: Skin/Breast: Denies pruritus and Denies rash Neurologic: Denies headache(s), Denies loss of vision and Denies weakness Psychiatric: Psychiatric: Reports no additional psychiatric complaints PMFSH Past Medical History Medical History Anxiety Asthma Kidney stone Overweight Surgical History Surgical History H/O lithotripsy History of cholecystectomy History of thoracic spinal fusion Family History Family History Sibling Family history of diabetes mellitus in first degree relative Other Family history of cardiovascular disease Hypertension Social History Social History Smoking status: Never smoker Alcohol intake: current Drinks per week: 2 Substance use: never Substance use type: does not use Living arrangements: with family Spiritual care concerns: No Comments At time of signature, agree with nursing past medical, surgical, social and family history. There is no relevant family history pertinent to the presenting complaint. Exam Const: General: cooperative, healthy appearing, comfortable, no acute distress and well nourished Nutritional Appearance: well nourished Orientation/consciousness: patient oriented x3 Limitations: no limitations HENMT: Head: normal to inspection, normocephalic and atraumatic Ears: external ears normal and TM's normal bilaterally Face/Nose/Sinus: Normal external nose present, normal facial exam, sinuses nontender and face symmetric Face and sinus: normal facial exam, sinuses nontender and face symmetric Mouth: Yes Normal oral and palatal mucosa present, Yes lip normal and Yes moist mucous membranes Teeth and gingiva: dentition normal Throat: posterior oropharynx normal, tonsils normal, uvula midline and postnasal drainage Eyes: General: appearance normal, both eyes and all related structures
== END 2023-02-07 09:05 | disposition home or self-care (01) ==
PROVIDERS: Emergency Provider Nurse Practitioner Family; PCP Physician Assistant
DX: J06.9 Acute upper respiratory infection, unspecified (principal); F41.9 Anxiety disorder, unspecified; J45.909 Unspecified asthma, uncomplicated; Z20.822 Contact with and (suspected) exposure to COVID-19
CPT/HCPCS: 87081; 87426; 87880; 99213; C9803; G0463

== ENCOUNTER 2023-03-09 19:19 | Emergency (ER) | payer BC, SELFPAY ==
--- NOTE | ~2023-03-09 | XR_ITS ---
EXAMINATION: XR chest 2V Exam Date/Time: 03/09/2023 19:50 CDT HISTORY: TIGHTNESS W/PRESSURE CENTER TO LEFT OF CHEST 1 MO. ASTHMA Comparison: 08/08/2018. RESULT: Lines, tubes, and devices: None. Lungs and pleura: Clear. Cardiomediastinal silhouette: Stable. Other: No acute osseous or upper abdominal finding. IMPRESSION: No acute cardiopulmonary process. Reviewed, dictated and finalized at location K.
[2023-03-09 19:23] VITALS: BP 165/83; PULSE 82; RESP 16; TEMP 36.8; O2SAT 100
--- NOTE | 2023-03-09 19:26 | ECG_ITS ---
Measurements Intervals [place] Rate: 78 P: 26 VA: 136 QRS: 65 QRSD: 86 T: 78 QT: 419 QTc: 479 Interpretive Statements SINUS RHYTHM NORMAL ELECTROCARDIOGRAM COMPARED TO ECG 01/08/2022 20:36:26 NO SIGNIFICANT CHANGES Electronically Signed On 03-10-2023 7:07:51 CDT by Juarez Ochoa M.D.
[2023-03-09 19:48] LABS: Basophils Absolute Auto 0.1 K/mm3 (0.0-0.1); Basophils Percent Auto 0.6 % (0.2-1.2); Eosinophils Absolute Auto 0.1 K/mm3 (0-0.3); Eosinophils Percent Auto 1.1 % (0-4.4); Hematocrit 41.7 % (37.0-47.0); Hemoglobin 13.6 g/dL (12.0-15.0); Immature Granulocyte Absolute 0.02 K/mm3 (0.00-0.031); Immature Granulocyte Percent A 0.2 % (0-0.5); Lymphocytes Absolute Auto 4.08 K/mm3 (0.9-3.2); Lymphocytes Percent Auto 37.8 % (18.3-44.2); Mean Corpuscular HGB Conc 32.6 g/dl (32-36); Mean Platelet Volume 10.3 fl (7.4-10.4); Monocytes Absolute Auto 0.7 K/mm3 (0.1-0.6); Monocytes Percent Auto 6.9 % (2.6-8.5); Neutrophils Absolute Auto 5.8 K/mm3 (1.3-6.7); Neutrophils Percent Auto 53.4 % (45.5-73.1); Platelet Count Result 282 k/mm3 (150-375); Red Blood Count 4.85 M/mm3 (4.2-5.4); Red Cell Distribution Width 13.3 % (11.5-14.5); White Blood Count 10.8 K/mm3 (4.5-10.0)
[2023-03-09 19:59] LABS: Partial Thromboplastin Time 28.4 SECONDS (22.3-36.8); Prothrombin Time 12.8 Seconds (11.1-14.7)
[2023-03-09 20:38] VITALS: PULSE 81; RESP 15; O2SAT 100
[2023-03-09 20:46] LABS: Alanine Aminotransferase 27 U/L (6-35); Albumin Level 4.7 g/dL (3.5-5.1); Alkaline Phosphatase 107 U/L (38-126); Anion Gap 6 mmol/L (8-16); Aspartate Amino Transferase 36 U/L (14-36); Bilirubin,Total 0.7 mg/dL (0.2-1.3); Blood Urea Nitrogen 9 mg/dL (7-17); Calcium 9.1 mg/dL (8.4-10.2); Carbon Dioxide 27 mmol/L (22-30); Chloride 104 mmol/L (98-107); Estimated CRCL calculation 125 ml/min; Estimated Glomerular Filt Rate > 60; Glucose 92 mg/dL (65-110); Lipase 86 U/L (23-300); Potassium 3.8 mmol/L (3.4-5.0); Sodium 137 mmol/L (137-145)
[2023-03-09 20:54] LABS: Troponin I < 0.012 ng/mL (0.000-0.034)
[2023-03-09 21:04] VITALS: BP 137/80; PULSE 81; RESP 14; O2SAT 100
--- NOTE | 2023-03-09 22:18 | ED.GENADULT ---
HPI - General Adult General Chief complaint: Chest Pain Stated complaint: chest pain, palpitation Time Seen by Provider: 03/09/23 20:03 History of Present Illness HPI narrative: This is a 37-year-old female with a history of anxiety. patient states that for the last month and half she has been having intermittent episodes of palpitations and chest pressure. There in the center of her chest. They occur 2-3 times per day and last for seconds at a time. There are no exacerbating or alleviating factors. She was recently started on levothyroxine for possible hypothyroid. Since she has been put on that the chest palpitations have increased in frequency. The patient denies shortness of breath, lower extremity edema, risk factors for DVT/ PE, fever chills productive cough. Related Data Home Medications Medication Instructions Recorded Confirmed bupropion HCl 300 mg 24 hr tablet, 300 mg PO DAILY 07/21/20 02/07/23 extended release beclomethasone dipropionate 40 2 inh inhalation DAILY 08/16/22 02/07/23 mcg/actuation HFA breath activated aerosol (Qvar RediHaler) cetirizine 10 mg tablet (Zyrtec) 10 mg PO DAILY 08/16/22 02/07/23 Allergies Allergy/AdvReac Type Severity Reaction Status Date / Time fish derived AdvReac Severe Anaphylaxis Verified 03/09/23 19:19 [facility] Past Medical History Medical History Anxiety Asthma Kidney stone Overweight Surgical History Surgical History H/O lithotripsy History of cholecystectomy History of thoracic spinal fusion Family History Family History Sibling Family history of diabetes mellitus in first degree relative Other Family history of cardiovascular disease Hypertension Social History Social History Smoking status: Never smoker Alcohol intake: current Drinks per week: 2 Substance use: never Substance use type: does not use Living arrangements: with family Spiritual care concerns: No Exam Narrative: APPEARANCE: No apparent distress. Head: atraumatic. EYES: EOMI, NOSE: Atraumatic NECK: Trachea midline RESPIRATORY: No increased rate of breathing clear to auscultation CARDIOVASCULAR: RRR,, no peripheral edema ABDOMINAL: Non-distended MUSCULOSKELETAl: No obvious deformities NEURO: Alert. Moving 4/4 extremities SKIN:: Warm, dry. Normal color PSYCHIATRIC: Normal affect Course Vital Signs Vital signs: Vital Signs Temperature 98.3 F 03/09/23 19:23 Pulse Rate 82 03/09/23 19:23 Respiratory Rate 16 03/09/23 19:23 Blood Pressure 165/83 H 03/09/23 19:23 Pulse Oximetry 100 03/09/23 19:23 Oxygen Delivery Room Air 03/09/23 19:23 Temperature 98.3 F 03/09/23 19:23 Pulse Rate 81 03/09/23 21:04 Respiratory Rate 14 03/09/23 21:04 Blood Pressure 137/80 03/09/23 21:04 Pulse Oximetry 100 03/09/23 21:04 Oxygen Delivery Room Air 03/09/23 19:23 Medical Decision Making MDM Narrative Medical decision making narrative: -Presentation: 37-year-old female presenting with intermittent palpitations. 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 Troponin was negative.
[2023-03-09 22:32] VITALS: BP 123/71; PULSE 85; RESP 15; O2SAT 98
== END 2023-03-09 22:40 | disposition home or self-care (01) ==
PROVIDERS: Emergency Provider Emergency Medicine; PCP Physician Assistant
DX: R00.2 Palpitations (principal); F41.9 Anxiety disorder, unspecified
CPT/HCPCS: 36415; 71046; 80053; 83690; 84484; 85025; 85610; 85730; 93005; 99284

== ENCOUNTER 2023-10-17 02:00 | Day surgery (SDC) | payer BC, SELFPAY ==
[2023-10-13 15:06] VITALS: BMI 32.3
--- NOTE | 2023-10-13 15:11 | PC.NURSE ---
Report to the Outpatient Waiting Room, entrance under the green pavilion located off [facility], at time 0900 on date 10/17/23. Planned Procedure Time: 1100. Time changes happen often and if your time is changed the preop area will call you the afternoon before. - You and your visitor will be asked to self-screen and do not enter if you have any COVID symptoms. - A mask is optional within the hospital at this time. Patients may have clear liquids (water, carbonated beverages, clear teas, apple juice) until 3 hours prior to surgery with a maximum of 20 ounces. - No food from midnight until time of surgery Take the following medications with a SIP of water the morning of surgery: INHALER DO NOT STOP ANY OF YOUR OTHER PRESCRIPTION MEDICATIONS PRIOR TO SURGERY ?EXCEPT THE FOLLOWING Medications to discontinue per physician: N/A Date to take last dose: N/A Please no make-up, nail afghan, hairspray, perfume, deodorant, or body powder the day of surgery. No jewelry (including any body piercings) or valuables the day of surgery, leave them at home. Please take a shower or bath the night before, or the morning of, surgery with an antibacterial soap. Wear comfortable, loose fitting clothing. - Jewelry must be removed prior to entering the operating room. Rings and piercings that are not removed may be cut off. - The hospital will not accept responsibility for valuables. - Please leave all valuables, including medications, at home the day of surgery. If you are going home after surgery, a licensed batch mixing truck driver must drive you home. - NO public transportation without another adult if you receive anesthesia. - We recommend that an adult stay with you for 24 hours following discharge. - We also recommend that you do not drive, make important decision, drink alcoholic beverages, or take any drugs that were not prescribed by your health care provider for at least 24 hours after your discharge time. Follow any additional instructions given to you from your surgeon. If you or anyone in your household have experienced Covid symptoms in the past week, please notify your surgeon or the nurse liaison at the phone number below for possible testing. Telephone instructions given to PT - BELEN LEIJA and asked if any additional questions and then verbalized understanding. Patient advised to call surgeon office or pre surgery nurse liaison [phone] if any additional questions.
--- NOTE | 2023-10-15 07:30 | P.HP_ITS ---
History of Present Illness History of Present Illness Consent: Risks, benefits, and alternatives have been discussed and questions answered. Patient agrees to proceed with procedure. Chief complaint: right kidney stone Narrative: Guilherme Cedillo is a 38 year old female with a known history of urolithiasis. She has recently experienced intermittent mild right flank pain. Renal ultrasonography demonstrated bilateral renal stones, proximally 9 mm in the right kidney in 4-5 mm in left kidney. Only the right stone is visible on KUB. After discussion of options she elects to proceed with right ESWL. She is aware the risks including, but not limited to, adverse cardiopulmonary events, hematuria perinephric hematoma as well as need for additional procedures. Review of Systems Review of Systems: All systems reviewed & are unremarkable except as noted in HPI and below PMFSH Past Medical History Medical History Anxiety Asthma Kidney stone Overweight Surgical History Surgical History H/O lithotripsy History of cholecystectomy History of thoracic spinal fusion Family History Family History Sibling Family history of diabetes mellitus in first degree relative Other Family history of cardiovascular disease Hypertension Social History Social History Smoking status: Never smoker Alcohol intake: current Drinks per week: 2 Alcohol use details: RARE Substance use: never Substance use type: does not use Living arrangements: with family Spiritual care concerns: No Meds Home Medications and Allergies Home Medications Medication Instructions Recorded Confirmed Type epinephrine 0.3 mg/0.3 mL 0.3 mg (0.3 mL) IM ONCE #1 ea 07/21/20 10/13/23 Rx injection, auto-injector (EpiPen) beclomethasone dipropionate 40 2 inh inhalation DAILY 08/16/22 10/13/23 History mcg/actuation HFA breath activated aerosol (Qvar RediHaler) cetirizine 10 mg tablet (Zyrtec) 10 mg PO DAILY 08/16/22 10/13/23 History lisdexamfetamine 20 mg capsule 30 mg PO DAILY 10/13/23 10/13/23 History Allergies Allergy/AdvReac Type Severity Reaction Status Date / Time No Known Allergies Allergy Verified 10/13/23 15:05 Exam Const: General: no acute distress Resp: Effort & Inspection: normal respiratory effort GI: Inspection: non-distended GI Palp: No abdominal tenderness and No Guarding due to palpation present (GI) Auscultation: normal bowel sounds Assessment and Plan Assessment and plan (1) Bilateral kidney stones: Code(s): N20.0 - Calculus of kidney Status: Acute Assessment and Plan: * Right ESWL
--- NOTE | 2023-10-16 16:04 | WPDANESEPPF ---
Anes - Initial Pre Proc Eval Procedure: Operation Date: 10/17/23 11:00 Proposed Procedures p Right Extracorporeal Shock Wave Lithotripsy - Rolly Flores MD Date/Time: 10/16/23 16:04 Surgeon: Rolly Flores MD Pre Op Diagnosis: right kidney stone Patient Data Age: 38 Gender: F Height: 1.68 m Weight: 90.75 kg Allergies Allergy/AdvReac Type Severity Reaction Status Date / Time No Known Allergies Allergy Verified 10/13/23 15:05 Home Medications Medication Instructions Recorded Confirmed Type epinephrine 0.3 mg/0.3 mL 0.3 mg (0.3 mL) IM ONCE #1 ea 07/21/20 10/13/23 Rx injection, auto-injector (EpiPen) beclomethasone dipropionate 40 2 inh inhalation DAILY 08/16/22 10/13/23 History mcg/actuation HFA breath activated aerosol (Qvar RediHaler) cetirizine 10 mg tablet (Zyrtec) 10 mg PO DAILY 08/16/22 10/13/23 History lisdexamfetamine 20 mg capsule 30 mg PO DAILY 10/13/23 10/13/23 History Patient hx anesthesia problems: none Family hx anesthesia problems: none Results Review: All pre-operative results and documents have been reviewed as part of the pre-operative evaluation. [facility] Past Medical History Medical History (Updated 10/15/23 @ 07:31 by Rolly Flores MD) Anxiety Asthma Kidney stone Overweight Surgical History Surgical History (Updated 10/16/23 @ 16:05 by Daniel Wood DO) H/O lithotripsy History of cholecystectomy History of thoracic spinal fusion History of tubal ligation Family History Family History Sibling Family history of diabetes mellitus in first degree relative Other Family history of cardiovascular disease Hypertension Social History Social History Smoking status: Never smoker Alcohol intake: current Drinks per week: 2 Alcohol use details: RARE Substance use: never Substance use type: does not use Living arrangements: with family Spiritual care concerns: No Anes - Eval Final PreProcedure Day of Procedure 10/16/23 16:04 Patient weight: obese Heart: regular rate and rhythm Lungs: clear to auscultation Airway: Mallampati scale class II Neurological: alert and oriented Last oral intake: >/= 8 hours ASA classification: II Emergent: no Anesthetic plan: proceed Anesthesia type and monitoring: general LMA and standard monitoring Results Review: All pre-operative results and documents have been reviewed as part of the pre-operative evaluation. Informed Consent: The patient's anesthetic plan and its attendant risks and benefits were discussed with the patient/family/POA. Questions were solicited and answers provided to the satisfaction of the patient/family/POA.
[2023-10-17] VITALS (9 sets, daily range): BP systolic 111–130; BP diastolic 65–83; PULSE 72–83; RESP 12–16; TEMP 36.1–36.2; O2SAT 97–100; BMI 31.8
--- NOTE | ~2023-10-17 | XR_ITS ---
XR abdomen/kub 1V 10/17/2023 09:15 Indication: Preop ESWL Procedure: KUB Comparison: Comparison to multiple prior studies sequentially, with oldest reviewed study dated 02/26. Findings: There are pelvic phleboliths. There are clustered stones in the lower pole of the right kid kelsey. Left kidney is obscured by bowel content. Lung bases are unremarkable. Impression: 1: Stable right nephrolithiasis. Reviewed, dictated and finalized at location B. N MIXER Impression: 1: Stable right nephrolithiasis.
--- NOTE | 2023-10-17 06:42 | WPDHPUPDATE1 ---
History and Physical Update Update Date/Time: 10/17/23 06:42 History and Physical has been reviewed, including an updated exam of the patient. There are NO changes in the patient's condition. Risks, benefits, and alternatives have been discussed and questions answered. Patient agrees to proceed with procedure.
[2023-10-17 09:28] LABS: Appearance Urine Clear (Clear); Bacteria Urine None Seen /hpf; Bilirubin Urine Negative (Negative); Blood Urine Trace (Negative); Color Urine Dark Yellow (Yellow); Glucose Urine UA Negative (Negative); Ketones Urine Trace mg/dL (Negative); Leukocyte Esterase Ur Trace LEU/UL (Negative); Nitrate Urine Negative (Negative); Non Pathogenic Casts 0-2; Protein Urine Negative (Negative); RBC Urine 0-2 /hpf (0-2); Specific Grav Ur 1.026 (1.001-1.035); Squamous Epithelial Cell Urine Occasional /hpf (Few); WBC Urine 0-5 /hpf
[2023-10-17 09:38] LABS: Partial Thromboplastin Time 28.2 SECONDS (22.3-36.8); Prothrombin Time 13.2 Seconds (11.1-14.7)
[2023-10-17 09:42] LABS: Add Urine Microscopic? YES
[2023-10-17] MEDS: LACTATED RINGERS 1,000 ML 30 ML IV CONT (09:55)
[2023-10-17] MEDS: ceFAZolin 2 GM/D5W 50 ML 2 GM/50 ML BAG IVPB (10:45)
--- NOTE | 2023-10-17 10:55 | W.PM.PROC2 ---
Procedure Note - Detailed Date of Procedure 10/17/23 Pre-op Diagnosis Right kidney stone Post-op Diagnosis Same Procedure Performed Right ESWL Surgeon Rolly Flores MD Anesthesia General Description of Procedure The patient was brought to the operative suite where she was placed in the supine position on the Dornier lithotripsy table. The focal point of the lithotripter was placed at a 8-9mm right renal calculus. A total of 2500 shocks were delivered at a power setting of 4. There appeared to be good fragmentation of the stone. The patient tolerated the procedure well and was taken to the recovery room in good condition. Drains No Packing No Pathology None sent Complications No immediate complications Condition Stable Disposition PACU
[2023-10-17] MEDS: fentaNYL CITRATE INJ (*CRX) 100 MCG/2 ML VIAL 25 MCG IV PUSH ×3 (12:03→12:28)
[2023-10-17] MEDS: oxyCODONE HCL (*CRX) 5 MG TAB IR PO (12:53)
== END 2023-10-17 13:48 | disposition home or self-care (01) ==
PROVIDERS: PCP Physician Assistant; Visit Provider Urology
PROC: (CPT 50590; principal; 2023-10-17 11:00)
DX: N20.0 Calculus of kidney (principal); J45.909 Unspecified asthma, uncomplicated
CPT/HCPCS: 50590; 36415; 74018; 81001; 85610; 85730; A9270; J0690; J1100; J2250; J2405; J2704; J3010; J7120

== ENCOUNTER 2023-11-04 16:58 | Outpatient (CLI) | payer BC, SELFPAY ==
--- NOTE | ~2023-11-04 | XR_ITS ---
EXAMINATION: XR abdomen/kub 1V DATE: 11/04/2023 17:24 INDICATION: Kidney stone follow-up. TECHNIQUE: A supine view of the abdomen on 2 radiographs was obtained. COMPARISON: Abdomen radiographs 10/17/2023, CT abdomen and pelvis 01/08/2022 FINDINGS: There are no dilated loops of bowel. There are phleboliths in the pelvis. There is a 10 mm stone in right kidney. IMPRESSION: 1. 10 mm stone in right kidney. Reviewed, dictated and finalized at location E. ORK COORDINATOR
== END 2023-11-04 16:59 | disposition home or self-care (01) ==
PROVIDERS: PCP Physician Assistant; Visit Provider Urology
DX: N20.0 Calculus of kidney (principal)
CPT/HCPCS: 74018

== ENCOUNTER 2024-01-15 12:14 | Outpatient (CLI) | payer OTHER, BC, SELFPAY ==
--- NOTE | ~2024-01-15 | XR_ITS ---
EXAMINATION: XR abdomen/kub 1V INDICATION: Right-sided kidney stone TECHNIQUE: Supine views of the abdomen were obtained on 2 radiographs. COMPARISON: 11/04/2023 FINDINGS: There is a stable 10 mm stone of the right mid kidney. No additional urolithiasis is identi fied. The bowel gas pattern is normal. The lung bases are clear. There are phleboliths of the pelvis. IMPRESSION: 1. Stable right nephrolithiasis. Reviewed, dictated and finalized at location F. PER MAKER
== END 2024-01-15 12:15 | disposition home or self-care (01) ==
LOC: ANHIMG 12:17
PROVIDERS: PCP Physician Assistant; Visit Provider Urology
DX: N20.0 Calculus of kidney (principal)
CPT/HCPCS: 74018

== ENCOUNTER 2024-03-29 20:51 | Emergency (ER) | payer OTHER, BC, SELFPAY ==
--- NOTE | ~2024-03-29 | CT_ITS ---
EXAMINATION: CT cervical spine wo con DATE: 03/29/2024 22:05 INDICATION: numbness/tingling TECHNIQUE: Computed tomography (CT) of the cervical spine was performed without intravenous contrast. Automated exposure control and iterative reconstruction technique were employed. The dose-length pro duct was 605.33 mGy-cm. COMPARISON: None. FINDINGS: Vertebral Body Alignment: Intact. Craniocervical and atlantoaxial alignment: Moderate degenerative change. Alignment intact. Osseous structures/fracture: No evidence of a lytic or blastic process in the visualized spine. No e vidence of acute fracture. Cervical soft tissues: The paraspinal soft tissues planes are maintained. Degenerative changes: No significant degenerative changes. IMPRESSION: No acute fracture or traumatic malalignment in the cervical spine. Reviewed, dictated and finalized at location K.
--- NOTE | ~2024-03-29 | CT_ITS ---
EXAMINATION: CT brain wo con DATE: 03/29/2024 22:05 INDICATION: numbness/tingling . TECHNIQUE: Computed tomography (CT) of the head was performed without intravenous contrast. The mA wa s adjusted according to patient size. Iterative reconstruction technique was employed. The dose-lengt h product was 605.33 mGy-cm. COMPARISON: None. FINDINGS: No acute intracranial hemorrhage or extra-axial fluid collection. No hydrocephalus, mass, or herniation. No acute ischemic infarct. Unremarkable dural venous sinus attenuation. No acute osseous abnormality. The aerated spaces are clear. IMPRESSION: No acute intracranial process. Reviewed, dictated and finalized at location K.
[2024-03-29 20:56] VITALS: BP 139/77; PULSE 89; RESP 18; TEMP 36.4; O2SAT 100
--- NOTE | 2024-03-30 01:22 | ED.GENADULT ---
HPI - General Adult General Chief complaint: Neck Pain/Injury Stated complaint: neck pain numbness in arm face and tongue Time Seen by Provider: 03/29/24 23:28 History of Present Illness HPI narrative: this is a 39-year-old female history of chronic neck pain presenting with left arm paresthesias. Patient has been having paresthesias in her left arm for quite some time. She has seen her primary care physician has ordered imaging and given referral for physical therapy. She came in today because she continued to have her chronic left arm paresthesias but then developed some PE paresthesias in her right foot in the left part of her lip. No weakness. No visual changes. No difficulty urinating. Patient has intermittently been taking pain medication and muscle relaxers although states she cannot take muscle relaxers wanting at work as it makes her too drowsy Related Data Home Medications Medication Instructions Recorded Confirmed beclomethasone dipropionate 40 2 inh inhalation DAILY 08/16/22 10/17/23 mcg/actuation HFA breath activated aerosol (Qvar RediHaler) cetirizine 10 mg tablet (Zyrtec) 10 mg PO DAILY 08/16/22 10/13/23 lisdexamfetamine 20 mg capsule 30 mg PO DAILY 10/13/23 10/13/23 Allergies Allergy/AdvReac Type Severity Reaction Status Date / Time No Known Allergies Allergy Verified 03/29/24 20:52 [facility] Past Medical History Medical History Anxiety Asthma Kidney stone Overweight Surgical History Surgical History H/O lithotripsy History of cholecystectomy History of thoracic spinal fusion History of tubal ligation Family History Family History Sibling Family history of diabetes mellitus in first degree relative Other Family history of cardiovascular disease Hypertension Social History Social History Smoking status: Never smoker Alcohol intake: current Drinks per week: 2 Alcohol use details: RARE Substance use: never Substance use type: does not use Living arrangements: with family Spiritual care concerns: No Exam Narrative: APPEARANCE: No apparent distress. Head: atraumatic. EYES: EOMI, NOSE: Atraumatic NECK: Trachea midline RESPIRATORY: No increased rate of breathing CARDIOVASCULAR: RRR, ABDOMINAL: Non-distended MUSCULOSKELETAl: No obvious deformities NEURO: Alert. Cranial nerves 2-12 grossly intact. Sensation light touch, motor function cerebellar function intact for 4 extremities. Gait exam was normal. SKIN:: Warm, dry. Normal color PSYCHIATRIC: Normal affect Course Vital Signs Vital signs: Vital Signs Temperature 97.6 F 03/29/24 20:56 Pulse Rate 89 03/29/24 20:56 Respiratory Rate 18 03/29/24 20:56 Blood Pressure 139/77 03/29/24 20:56 Pulse Oximetry 100 03/29/24 20:56 Oxygen Delivery Room Air 03/29/24 20:56 Temperature 97.6 F 03/29/24 20:56 Pulse Rate 89 03/29/24 20:56 Respiratory Rate 18 03/29/24 20:56 Blood Pressure 139/77 03/29/24 20:56 Pulse Oximetry 100 03/29/24 20:56 Oxygen Delivery Room Air 03/29/24 20:56 Medical Decision Making [facility] Narrative Medical decision making narrative: -Course: 39-year-old female with a history of neck arthritis presenting for acute on chronic paresthesias. No weakness on physical exam. CT the head negative. CT of the C-spine showed degenerative changes which the patient was aware of. No concern for central cause of paresthesias. Patient should continue pain medication muscle relaxers. She should continue physical therapy. Patient given return precautions. Instructed follow-up primary care physician. -DDX includes but is not limited to: Peripheral neuropathy, CVA, MS -Co-morbidities complicating care: neck arthritis, paresthesias -Indepen
[2024-03-30 01:44] VITALS: BP 134/76; PULSE 82; RESP 16; O2SAT 100
== END 2024-03-30 01:45 | disposition home or self-care (01) ==
PROVIDERS: Emergency Provider Emergency Medicine; PCP Physician Assistant
DX: R20.2 Paresthesia of skin (principal); J45.909 Unspecified asthma, uncomplicated; Z87.442 Personal history of urinary calculi; Z90.49 Acquired absence of other specified parts of digestive tract; Z98.1 Arthrodesis status
CPT/HCPCS: 70450; 72125; 99284